=== PATIENT | male | born 1945 | race Caucasian/White ===

== ENCOUNTER 2020-02-12 05:29 | Inpatient (IN) | payer OTHER, BC, SELFPAY ==
[~2020-02-12] VITALS: Ht 172.7 cm; Wt 69.5 kg
[2020-02-12 05:34] VITALS: BP_SYST 104
--- NOTE | 2020-02-12 05:35 | NUR ---
Placed in room 8. Placed on monitor worker, blood pressure machine and pulse oximeter. To gown for exam. Side rails up. Report given to Felix BRITTON
--- NOTE | 2020-02-12 05:36 | NUR ---
Assumed care of patient, Introduced self to patient, positioned for comfort. Bed to low position sr up. patient bilateral lower leg amputee. Awake/alert but oriented to name. Patient resting quietly. No acute distress noted. Vital signs within normal range. Continue to monitor level of comfort.
--- NOTE | 2020-02-12 05:36 | NUR ---
Pt BIB[facility] from [facility] for [facility]. Staff finds pt unresponsive from normal baseline of A&Ox2. Glucose was 23 staff gives 1mg Glucagon IM and activates EMS. IV and D10 started [facility]. Glucose enroute 181 after treatment. Pt placed in bus monitor and will continue assess for change of condition
[2020-02-12] MEDS ORDERED: MEGE20TA6 PO (05:50)
[2020-02-12] MEDS ORDERED: VITD2000 PO (05:50)
[2020-02-12] MEDS ORDERED: ACET-2634 PO (05:50)
[2020-02-12] MEDS ORDERED: COR3.125 PO (05:50)
[2020-02-12] MEDS ORDERED: BISA10SU61 RC (05:50)
[2020-02-12] MEDS ORDERED: POLY119P2 PO (05:50)
[2020-02-12] MEDS ORDERED: ASPI-1155 PO (05:50)
[2020-02-12] MEDS ORDERED: ASCO500T20 PO (05:50)
[2020-02-12] MEDS ORDERED: LACT10SO6 PO (05:50)
[2020-02-12] MEDS ORDERED: DOCU-144 PO (05:50)
[2020-02-12] MEDS ORDERED: MOM PO (05:50)
[2020-02-12] MEDS ORDERED: LOSA25TA3 PO (05:50)
[2020-02-12] MEDS ORDERED: FER300L PO (05:50)
[2020-02-12] MEDS ORDERED: MIDO5TAB4 PO (05:50)
[2020-02-12] MEDS ORDERED: TRI48 PO (05:50)
[2020-02-12] MEDS ORDERED: ATOR40TA68 PO (05:50)
[2020-02-12] MEDS ORDERED: ACET160S2 PO (05:50)
--- NOTE | 2020-02-12 06:10 | NUR ---
CLOSING NOTE PATIENT REFUSED HYGIENE CARE FOR HIS BACKSIDE AND REFUSED PHYSICAL ASSESSMENT FOR HIS BACK SIDE; HE STATED HE "ONLY WANT TO SLEEP" NO SHORTNESS OF BREATH NOTED. AT THIS TIME, PATIENT IS RESTING IN BED, STABLE, NO SIGNS OF RESPIRATORY DISTRESS. CALL LIGHT IS WITHIN REACH. BED IS LOCKED, ALARMED, AND AT THE LOWEST LEVEL. FALL, ASPIRATION, ISOLATION, SAFETY, AND RESPIRATORY PRECAUTIONS HAVE BEEN TAKEN THROUGHOUT THE SHIFT. WILL CONTINUE TO MONITOR UNTIL SHIFT REPORT IS GIVEN AT BEDSIDE TO AM NURSE. Addendum: 02/13/20 at 0917 by Ashley Arguelles RN NOTE INTENDED FOR DIFFERENT TIME
--- NOTE | 2020-02-12 06:33 | NUR ---
# 16 FR Zeng catheter with use of sterile technique. Immediate return of 0 cc urine noted. Bedside drainage bag placed below level of bladder. Pt tolerated procedure well. Patient arrived with zeng in place, changed due to standard of practice prior to admission. Patient unable to toilet self.
[2020-02-12] MEDS ORDERED: VANCOMYCIN HCL 1,000 MG in NS 250 ML IV ONE (06:45)
[2020-02-12] MEDS ORDERED: MEROPENEM 1 GM in NS 100 ML IV ONE (06:45)
[2020-02-12] MEDS ORDERED: cefTRIAXone 1 GM IVPB PREMIX 50 ML IV ONE (06:45)
[2020-02-12] MEDS ORDERED: VANCOMYCIN HCL 1000 MG/VIAL IV ONE (06:55)
--- NOTE | 2020-02-12 07:07 | NUR ---
Patient medicated as ordered. will observe for any adverse reaction. Iv site to right forearm patent and intact. Bed to low position sr up, continue to monitor level of comfort. Patient resting quietly. No acute distress noted. Vital signs within normal range.
[2020-02-12] MEDS ORDERED: MAGNESIUM SULFATE 50 ML IV ONE (07:15)
[2020-02-12] MEDS ORDERED: methylPREDNISolone SOD SUCC 500 MG/VIAL (Solu-MEDROL) IV ONE (07:15)
[2020-02-12 07:24] LABS: BASOPHILS % (AUTO) 0.5 % (0.0-2.0); EOSINOPHILS # (AUTO) 0.1 K/uL (0.0-0.4); EOSINOPHILS % (AUTO) 0.8 % (0.0-4.0); HEMATOCRIT 32.1 % (36-54); HEMOGLOBIN 10.1 g/dL (14.0-18.0); LYMPHOCYTES # (AUTO) 0.5 K/uL (1.0-5.5); LYMPHOCYTES % (AUTO) 5.7 % (20.5-51.5); MEAN CORPUSCULAR HEMOGLOBIN 28 pg (27-31); MEAN CORPUSCULAR HGB CONC 32 % (32-36); MEAN CORPUSCULAR VOLUME 88 fL (79.0-98.0); MONOCYTES # (AUTO) 0.7 K/uL (0.0-1.0); MONOCYTES % (AUTO) 8.5 % (1.7-9.3); NEUTROPHILS % (AUTO) 84.5 % (40.0-70.0); PLATELET COUNT (AUTO) 220 K/uL (130-430); RED BLOOD CELL COUNT(AUTO) 3.64 MIL/uL (4.2-6.2); RED CELL DISTRIBUTION WIDTH 20.3 % (9.0-15.0); WHITE BLOOD COUNT (AUTO) 8.3 K/uL (4.8-10.8)
--- NOTE | 2020-02-12 07:30 | NUR ---
reportb received from Yash BRITTON.
--- NOTE | 2020-02-12 07:39 | NUR ---
Dr. Scott at the bedside
[2020-02-12] MEDS ORDERED: MUPIROCIN 2% TOPICAL OINTMENT 22 GM NS PRN (07:45)
[2020-02-12] MEDS ORDERED: DOCUSATE SODIUM 100 MG CAPSULE PO PRN (07:45)
[2020-02-12] MEDS ORDERED: PIPERACILLIN/TAZO 3.375 GM in NS 50 ML IV ONE (07:45)
[2020-02-12] MEDS ORDERED: ONDANSETRON HCL 4 MG/2 ML VIAL IVP PRN (07:45)
[2020-02-12] MEDS ORDERED: MAGNESIUM SULFATE 50 ML IV PRN (07:45)
[2020-02-12] MEDS ORDERED: POTASSIUM CHLORIDE 20 MEQ TAB.PRT.SR PO PRN (07:45)
[2020-02-12] MEDS ORDERED: MORPHINE 2 MG/ML INJ. SYRINGE IVP PRN (07:45)
[2020-02-12] MEDS ORDERED: ACETAMINOPHEN 325 MG TABLET PO PRN (07:45)
[2020-02-12 08:28] LABS: ANION GAP 8 (5-15); CALCIUM 8.1 mg/dL (8.4-11.0); CHLORIDE 105 mmol/L (98-107); CREATININE 1.28 mg/dL (0.55-1.30); GLUCOSE 59 mg/dL (70-99); POTASSIUM 5.3 mmol/L (3.5-5.1); SODIUM SERUM 141 mmol/L (136-145); UREA NITROGEN, BLOOD 36 mg/dL (8-21)
--- NOTE | 2020-02-12 08:30 | NUR ---
Current BS 24. One amp of D50 given. Will reassess
[2020-02-12 08:33] LABS: ALANINE AMINOTRANSFERASE 14 U/L (12-78); ASPARTATE AMINOTRANSFERASE 18 U/L (10-37); TOTAL BILIRUBIN 0.5 mg/dL (0.0-1.0)
--- NOTE | 2020-02-12 08:45 | NUR ---
current BS is 149
[2020-02-12] MEDS ORDERED: ASCORBIC ACID 500 MG TABLET PO ONE (09:00)
[2020-02-12] MEDS ORDERED: FUROSEMIDE 20 MG/2 ML VIAL IVP ONE (09:00)
[2020-02-12] MEDS ORDERED: CARVEDILOL 3.125 MG TABLET (COREG) PO ONE (09:00)
[2020-02-12] MEDS ORDERED: LOSARTAN POTASSIUM 25 MG TABLET PO ONE (09:00)
[2020-02-12] MEDS ORDERED: DEXTROSE 50% JECT 50 ML DISP.SYRIN IVP PRN (09:00)
[2020-02-12] MEDS ORDERED: ASPIRIN 81 MG TAB.CHEW PO ONE (09:00)
[2020-02-12] MEDS ORDERED: SODIUM POLYSTYRENE SULFONATE 15 GM/60 ML UDBTL PO ONE (09:00)
[2020-02-12] MEDS: D5NS 1,000 ML IV SCH (09:26)
[2020-02-12] MEDS ORDERED: FUROSEMIDE 20 MG/2 ML VIAL ONE (11:15)
[2020-02-12] MEDS: HEPARIN SODIUM,PORCINE 5,000 UNITS/ML VIAL SUBCUT SCH ×2 (11:17→21:00)
[2020-02-12] MEDS: INSULIN LISPRO SLIDING SCALE 100 UNITS/ML VIAL (humaLOG) SUBCUT PRN (11:23)
[2020-02-12] MEDS ORDERED: INSULIN Lispro 100 UNITS/ML VIAL (humaLOG) ONE (11:24)
[2020-02-12 11:59] VITALS: BP_SYST 127
[2020-02-12] MEDS ORDERED: D10W 1,000 ML IV SCH (13:00)
--- NOTE | 2020-02-12 13:00 | NUR ---
Dr. Reynolds at the bedside.
[2020-02-12] MEDS ORDERED: MIDODRINE HCL 5 MG TABLET (PROAMATINE) PO ONE (15:00)
--- NOTE | 2020-02-12 15:05 | NUR ---
BiPAP removed. O2 is at 2l via NC. Current o2 sat is 100%.
--- NOTE | 2020-02-12 16:14 | NUR ---
Pt's , Nina, called in regards to pt status. stated she will be leaving the house tonight and wont be returning until morning and if anything were to happen to call her cell. #: [phone]
--- NOTE | 2020-02-12 16:20 | NUR ---
Pt able to tolerate PO intake. Kayekelate given at this time
[2020-02-12] MEDS ORDERED: SODIUM POLYSTYRENE SULFONATE 15 GM/60 ML UDBTL ONE (16:30)
--- NOTE | 2020-02-12 18:29 | NUR ---
UA and MRSA sent
--- NOTE | 2020-02-12 18:37 | NUR ---
Medication reconciliation completed with information provided by pt. Any prior medication reconciliation on file was reviewed and corrected.
--- NOTE | 2020-02-12 18:41 | NUR ---
Patient will be admitted to care of Dr. Scott. Admitted to tele unit. Will go to room 128-a. Belongings list completed. Complete and up to date summary report printed. SBAR report to be given at bedside with opportunity for questions. IV site 20g right hand patent and infusing well. Bedside report to be given
[2020-02-12 19:02] VITALS: BP_SYST 122
--- NOTE | 2020-02-12 19:02 | NUR ---
ADMISSION NOTE Received patient from ER via toni, received report from Vilma BRITTON. Patient admitted with diagnosis of PNA. Patient placed on O2 2L via NC, patient placed on telemetry as ordered. Patient oriented to hospital routine, call light, toileting and safety-patient confused. Side rails up x3, bed alarm on, call light within reach.
[2020-02-12] MEDS: ASCORBIC ACID 500 MG TABLET PO SCH (21:00)
[2020-02-12] MEDS ORDERED: CARVEDILOL 3.125 MG TABLET (COREG) PO SCH (21:00)
[2020-02-12] MEDS: MIDODRINE HCL 5 MG TABLET (PROAMATINE) PO SCH (21:00)
[2020-02-12] MEDS: ATORVASTATIN 20 MG TABLET PO SCH (21:00)
[2020-02-12] MEDS: DOXYCYCLINE HYCLATE 100 MG in D5W 100 ML IV SCH (21:00)
[2020-02-12] MEDS: SODIUM BICARBONATE 650 MG TABLET PO SCH (21:00)
[2020-02-13] VITALS: BP_SYST 107
[2020-02-13] MEDS: D5NS 1,000 ML IV SCH (05:00)
--- NOTE | 2020-02-13 06:10 | NUR ---
CLOSING NOTE PATIENT REFUSED HYGIENE CARE FOR HIS BACKSIDE AND REFUSED PHYSICAL ASSESSMENT FOR HIS BACK SIDE; HE STATED HE "ONLY WANT TO SLEEP" NO SHORTNESS OF BREATH NOTED. AT THIS TIME, PATIENT IS RESTING IN BED, STABLE, NO SIGNS OF RESPIRATORY DISTRESS. CALL LIGHT IS WITHIN REACH. BED IS LOCKED, ALARMED, AND AT THE LOWEST LEVEL. FALL, ASPIRATION, ISOLATION, SAFETY, AND RESPIRATORY PRECAUTIONS HAVE BEEN TAKEN THROUGHOUT THE SHIFT. WILL CONTINUE TO MONITOR UNTIL SHIFT REPORT IS GIVEN AT BEDSIDE TO AM NURSE.
[2020-02-13 06:49] LABS: BASOPHILS % (AUTO) 0.2 % (0.0-2.0); EOSINOPHILS % (AUTO) 0.1 % (0.0-4.0); HEMATOCRIT 28.6 % (36-54); HEMOGLOBIN 9.3 g/dL (14.0-18.0); LYMPHOCYTES # (AUTO) 0.6 K/uL (1.0-5.5); MEAN CORPUSCULAR HEMOGLOBIN 28 pg (27-31); MEAN CORPUSCULAR HGB CONC 32 % (32-36); MEAN CORPUSCULAR VOLUME 87 fL (79.0-98.0); MONOCYTES # (AUTO) 0.6 K/uL (0.0-1.0); MONOCYTES % (AUTO) 12.5 % (1.7-9.3); NEUTROPHILS # (AUTO) 3.3 K/uL (1.8-7.7); NEUTROPHILS % (AUTO) 74.2 % (40.0-70.0); PLATELET COUNT (AUTO) 203 K/uL (130-430); RED CELL DISTRIBUTION WIDTH 20.1 % (9.0-15.0); WHITE BLOOD COUNT (AUTO) 4.4 K/uL (4.8-10.8)
[2020-02-13 07:29] LABS: ALANINE AMINOTRANSFERASE 13 U/L (12-78); ALBUMIN 2.6 g/dL (3.4-4.8); ANION GAP 5 (5-15); ASPARTATE AMINOTRANSFERASE 13 U/L (10-37); CALCIUM 7.8 mg/dL (8.4-11.0); CHLORIDE 105 mmol/L (98-107); CREATININE 1.11 mg/dL (0.55-1.30); GLUCOSE 139 mg/dL (70-99); POTASSIUM 4.5 mmol/L (3.5-5.1); SODIUM SERUM 141 mmol/L (136-145); THYROID STIMULATING HORMONE 4.31 uIu/mL (0.36-3.74); TOTAL BILIRUBIN 0.4 mg/dL (0.0-1.0); UREA NITROGEN, BLOOD 30 mg/dL (8-21)
[2020-02-13 07:56] LABS: CHOLESTEROL 86 mg/dL (<200); HDL CHOLESTEROL 39 mg/dL (>45); LDL CHOLESTEROL 42 mg/dL (<100); TRIGLYCERIDES 38 mg/dL (30-150)
[2020-02-13] MEDS ORDERED: FUROSEMIDE 20 MG/2 ML VIAL IVP SCH (09:00)
[2020-02-13] MEDS: HEPARIN SODIUM,PORCINE 5,000 UNITS/ML VIAL SUBCUT SCH ×2 (09:36→21:00)
[2020-02-13] MEDS: DOXYCYCLINE HYCLATE 100 MG in D5W 100 ML IV SCH ×2 (09:36→21:00)
[2020-02-13] MEDS: SODIUM BICARBONATE 650 MG TABLET PO SCH ×3 (09:36→21:00)
[2020-02-13] MEDS: ASCORBIC ACID 500 MG TABLET PO SCH ×2 (09:36→21:00)
[2020-02-13] MEDS: LOSARTAN POTASSIUM 25 MG TABLET PO SCH (09:36)
[2020-02-13] MEDS: MIDODRINE HCL 5 MG TABLET (PROAMATINE) PO SCH ×3 (09:36→21:00)
[2020-02-13] MEDS: ASPIRIN 81 MG TAB.CHEW PO SCH (09:36)
--- NOTE | 2020-02-13 09:36 | NUR ---
OPENING NOTES/ ROUTINE MEDS PT AWAKE, ALERT, AND ORIENTED X3. ASKS REPETITIVE QUESTIONS. IV LINE INTACT AND PATENT, NO SIGNS OF INFILTRATION NOTED, FLUIDS RUNNING ORDERED. NONLABORED BREATHING NOTED, RECEIVING O2 AT 3LPM VIA NASAL CANNULA, TOLERATING WELL. ROUTINE MEDS ADMINISTERED ORDERED PER MD, EDUCATION GIVEN, TOLERATED WELL. NO ACUTE DISTRESS NOTED. ALL NEEDS MET. CALL LIGHT IN REACH. CALLED PT'S ON PHONE, PT SPEAKING TO AT THIS TIME. FALL, ASPIRATION, AND ISOLATION PRECAUTIONS IN PLACE. CONTINUE TO MONITOR.
--- NOTE | 2020-02-13 10:21 | NUR ---
Nutrition Update Abe Scale 14 noted. Pt admitted for PNA Diet: cardiac, finely chopped and Glucerna Shakes TID BMI: 24.4 kg/m2 RD to follow per nutrition care standards.
[2020-02-13 12:18] VITALS: BP_SYST 101
[2020-02-13 16:15] VITALS: BP_SYST 98
[2020-02-13] MEDS: INSULIN LISPRO SLIDING SCALE 100 UNITS/ML VIAL (humaLOG) SUBCUT PRN ×2 (17:11→21:00)
--- NOTE | 2020-02-13 19:20 | NUR ---
CLOSING NOTES PT AWAKE AND ALERT. IV LINE INTACT AND PATENT, NO SIGNS OF INFILTRATION NOTED, FLUIDS RUNNING ORDERED, TOLERATING WELL. NONLABORED BREATHING NOTED, RECEIVING O2 AT 3LPM VIA NASAL CANNULA, TOLERATING WELL. NO ACUTE DISTRESS NOTED. PT DENIES SOB AT THIS TIME. ALL NEEDS MET. CALL LIGHT IN REACH. FALL, ASPIRATION, AND ISOLATION PRECAUTIONS IN PLACE. ENDORSED CARE TO TOBI GORE.
[2020-02-13 19:55] VITALS: BP_SYST 94
[2020-02-13] MEDS: ATORVASTATIN 20 MG TABLET PO SCH (21:00)
[2020-02-13] MEDS: CARVEDILOL 6.25 MG TABLET (COREG) PO SCH (21:00)
[2020-02-13] MEDS: FUROSEMIDE 20 MG/2 ML VIAL IVP SCH (21:00)
--- NOTE | 2020-02-13 22:30 | NUR ---
HYGIENE CARE NOTE HYGIENE CARE IS PROVIDED AT THIS TIME, FRESH LINENS PROVIDED, AND PATIENT IS REPOSITIONED FOR COMFORT. PATIENT TOLERATED WELL. CALL LIGHT PLACED WITHIN REACH. BED IS LOCKED, ALARMED, AND AT THE LOWEST LEVEL.
[2020-02-14] VITALS: BP_SYST 114
[2020-02-14] MEDS: LORazepam 2 MG/ML VIAL IVP PRN (00:30)
[2020-02-14] MEDS: INSULIN LISPRO SLIDING SCALE 100 UNITS/ML VIAL (humaLOG) SUBCUT PRN ×2 (02:25→12:44)
--- NOTE | 2020-02-14 06:40 | NUR ---
CLOSING NOTE PATIENT WAS UNCOOPERATIVE DURING THE SHIFT, CONTINUOUSLY TAKING OFF HIS OXYGEN SENSOR DESPITE SAFETY EDUCATION EFFORTS. NO EPISODES OF SHORTNESS OF BREATH NOTED. AT THIS TIME, PATIENT IS RESTING IN BED, STABLE, NO SIGNS OF RESPIRATORY DISTRESS. CALL LIGHT IS WITHIN REACH. BED IS LOCKED, ALARMED, AND AT THE LOWEST LEVEL. FALL, ASPIRATION, ISOLATION, SAFETY, AND RESPIRATORY PRECAUTIONS HAVE BEEN TAKEN THROUGHOUT THE SHIFT. WILL CONTINUE TO MONITOR UNTIL SHIFT REPORT IS GIVEN AT BEDSIDE TO AM NURSE.
[2020-02-14 07:37] LABS: BASOPHILS % (AUTO) 0.7 % (0.0-2.0); EOSINOPHILS # (AUTO) 0.1 K/uL (0.0-0.4); EOSINOPHILS % (AUTO) 0.8 % (0.0-4.0); HEMATOCRIT 29.4 % (36-54); HEMOGLOBIN 9.5 g/dL (14.0-18.0); LYMPHOCYTES # (AUTO) 0.7 K/uL (1.0-5.5); LYMPHOCYTES % (AUTO) 11.1 % (20.5-51.5); MEAN CORPUSCULAR HEMOGLOBIN 28 pg (27-31); MEAN CORPUSCULAR HGB CONC 32 % (32-36); MEAN CORPUSCULAR VOLUME 86 fL (79.0-98.0); MONOCYTES # (AUTO) 0.6 K/uL (0.0-1.0); MONOCYTES % (AUTO) 9.7 % (1.7-9.3); NEUTROPHILS # (AUTO) 4.8 K/uL (1.8-7.7); NEUTROPHILS % (AUTO) 77.7 % (40.0-70.0); PLATELET COUNT (AUTO) 209 K/uL (130-430); RED CELL DISTRIBUTION WIDTH 19.8 % (9.0-15.0); WHITE BLOOD COUNT (AUTO) 6.2 K/uL (4.8-10.8)
[2020-02-14 07:55] VITALS: BP_SYST 124
--- NOTE | 2020-02-14 07:55 | NUR ---
INITIAL ROUNDS Received pt AAOx2, forgetful at times, no s/s resp distress, no c/o pain or discomfort. Pt on airborne and droplet isolation precautions for Covid 19+. Plan of care for the day reviewed with pt-pt verbalized his understanding. Pt repositioned with pillow support and right stump off-loaded for skin care. Aparicio draining to gravity with yellow urine. Pain management, disease process, skin and safety discussed-pt just stated "okay"-will reinforce all teachings. Side rails up x3, bed alarm on for safety. Call light within reach.
[2020-02-14 08:16] LABS: ALANINE AMINOTRANSFERASE 11 U/L (12-78); ALBUMIN 2.8 g/dL (3.4-4.8); ANION GAP 5 (5-15); ASPARTATE AMINOTRANSFERASE 16 U/L (10-37); CALCIUM 7.6 mg/dL (8.4-11.0); CHLORIDE 101 mmol/L (98-107); CREATININE 1.12 mg/dL (0.55-1.30); GLUCOSE 151 mg/dL (70-99); POTASSIUM 3.9 mmol/L (3.5-5.1); SODIUM SERUM 137 mmol/L (136-145); TOTAL BILIRUBIN 0.5 mg/dL (0.0-1.0); UREA NITROGEN, BLOOD 32 mg/dL (8-21)
[2020-02-14] MEDS: FUROSEMIDE 20 MG/2 ML VIAL IVP SCH ×2 (09:47→21:00)
[2020-02-14] MEDS: CARVEDILOL 6.25 MG TABLET (COREG) PO SCH ×2 (09:48→21:00)
[2020-02-14] MEDS: LOSARTAN POTASSIUM 25 MG TABLET PO SCH (09:48)
[2020-02-14] MEDS: ASPIRIN 81 MG TAB.CHEW PO SCH (09:48)
[2020-02-14] MEDS: SODIUM BICARBONATE 650 MG TABLET PO SCH ×3 (09:48→21:00)
[2020-02-14] MEDS: MIDODRINE HCL 5 MG TABLET (PROAMATINE) PO SCH ×3 (09:49→21:00)
[2020-02-14] MEDS: ASCORBIC ACID 500 MG TABLET PO SCH ×2 (09:53→21:00)
[2020-02-14] MEDS: HEPARIN SODIUM,PORCINE 5,000 UNITS/ML VIAL SUBCUT SCH ×2 (09:53→21:00)
[2020-02-14] MEDS: DOXYCYCLINE HYCLATE 100 MG in D5W 100 ML IV SCH ×2 (09:54→21:00)
--- NOTE | 2020-02-14 16:13 | NUR ---
Dietitian Recommendations * Recommend continuing cardiac, finely chopped diet w/ Glucerna TID (ONS provides 660 kcal/day, 30 gm protein/day) * Encourage increase PO intakes LP, RD Please refer to Nutrition Assessment for details. Addendum: 02/14/20 at [address] Amended: Links added.
[2020-02-14 17:15] VITALS: BP_SYST 129
--- NOTE | 2020-02-14 19:35 | NUR ---
CLOSING NOTE Pt resting quietly in bed with no s/s resp distress, no c/o pain or discomfort. Airborne and droplet isolation precautions maintained throughout shift. All precautions remain in place, needs met, call light within reach.
--- NOTE | 2020-02-14 19:49 | NUR ---
Initial note: Received report from jamaal RN. Patient is awake, laying in bed, no acute distress. Tolerating 6L NC, even and unlabored breathing. IV site saline locked. Aparicio draining clearl, yellow urine to gravity. Call light with patient. Safety, fall, COVID iso precautions in place. Will continue with plan of care.
[2020-02-14 20:45] VITALS: BP_SYST 100
[2020-02-14] MEDS: ATORVASTATIN 20 MG TABLET PO SCH (21:00)
[2020-02-15] VITALS: BP_SYST 104
[2020-02-15] MEDS: LORazepam 2 MG/ML VIAL IVP PRN (01:25)
--- NOTE | 2020-02-15 06:39 | NUR ---
Closing note: Patient is resting in bed, no acute distress. Even, unlabored breathing on 6L NC. Aparicio draining yellow urine to gravity. All needs met. Safety, fall, COVID iso precautions observed. Will endorse care to dayshift RN.
[2020-02-15 08:59] LABS: BASOPHILS % (AUTO) 0.3 % (0.0-2.0); EOSINOPHILS # (AUTO) 0.1 K/uL (0.0-0.4); EOSINOPHILS % (AUTO) 0.9 % (0.0-4.0); HEMATOCRIT 31.2 % (36-54); HEMOGLOBIN 10.1 g/dL (14.0-18.0); LYMPHOCYTES # (AUTO) 0.6 K/uL (1.0-5.5); LYMPHOCYTES % (AUTO) 7.3 % (20.5-51.5); MEAN CORPUSCULAR HEMOGLOBIN 28 pg (27-31); MEAN CORPUSCULAR HGB CONC 33 % (32-36); MEAN CORPUSCULAR VOLUME 86 fL (79.0-98.0); MONOCYTES # (AUTO) 1.2 K/uL (0.0-1.0); MONOCYTES % (AUTO) 14.8 % (1.7-9.3); NEUTROPHILS # (AUTO) 6.2 K/uL (1.8-7.7); NEUTROPHILS % (AUTO) 76.7 % (40.0-70.0); PLATELET COUNT (AUTO) 205 K/uL (130-430); RED BLOOD CELL COUNT(AUTO) 3.61 MIL/uL (4.2-6.2); RED CELL DISTRIBUTION WIDTH 19.7 % (9.0-15.0); WHITE BLOOD COUNT (AUTO) 8.1 K/uL (4.8-10.8)
[2020-02-15 09:18] VITALS: BP_SYST 128
--- NOTE | 2020-02-15 09:18 | NUR ---
INITIAL ROUNDS Received pt AAOx2, no s/s resp distress, no c/o pain or discomfort. Pt on airborne and droplet isolation precautions for Covid 19+. Plan of care for the day reviewed with pt-pt verbalized stated okay. HOB elevated for aspiration precautions. Pt repositioned with pillow support and right stump off-loaded for skin care. Aparicio draining to gravity with yellow urine. Pain management, disease process, skin and safety discussed-pt just stated "okay"-will reinforce all teachings. Side rails up x3, bed alarm on for safety. Call light within reach.
[2020-02-15] MEDS: MIDODRINE HCL 5 MG TABLET (PROAMATINE) PO SCH ×3 (09:30→21:36)
[2020-02-15] MEDS: DOXYCYCLINE HYCLATE 100 MG in D5W 100 ML IV SCH ×2 (09:30→21:34)
[2020-02-15] MEDS: SODIUM BICARBONATE 650 MG TABLET PO SCH (09:30)
[2020-02-15] MEDS: ASCORBIC ACID 500 MG TABLET PO SCH ×2 (09:30→21:36)
[2020-02-15] MEDS: ASPIRIN 81 MG TAB.CHEW PO SCH (09:30)
[2020-02-15] MEDS: FUROSEMIDE 20 MG/2 ML VIAL IVP SCH ×2 (09:31→21:35)
[2020-02-15] MEDS: CARVEDILOL 6.25 MG TABLET (COREG) PO SCH ×2 (09:31→21:36)
[2020-02-15] MEDS: LOSARTAN POTASSIUM 25 MG TABLET PO SCH (09:32)
[2020-02-15] MEDS: HEPARIN SODIUM,PORCINE 5,000 UNITS/ML VIAL SUBCUT SCH ×2 (09:32→21:40)
[2020-02-15 09:38] LABS: ANION GAP 10 (5-15); CHLORIDE 100 mmol/L (98-107); CREATININE 0.85 mg/dL (0.55-1.30); GLUCOSE 69 mg/dL (70-99); POTASSIUM 3.9 mmol/L (3.5-5.1); SODIUM SERUM 138 mmol/L (136-145); UREA NITROGEN, BLOOD 29 mg/dL (8-21)
[2020-02-15 10:47] VITALS: BP_SYST 104
[2020-02-15] MEDS: INSULIN LISPRO SLIDING SCALE 100 UNITS/ML VIAL (humaLOG) SUBCUT PRN ×2 (18:12→21:40)
[2020-02-15 19:00] VITALS: BP_SYST 128
--- NOTE | 2020-02-15 19:24 | NUR ---
CLOSING NOTE Pt sitting up in bed eating his dinner with no s/s resp distress, no c/o pain or discomfort. Covid 19 -, airborne and droplet isolation D/C'd. Telemetry discontinued. Needs met, call light within reach.
[2020-02-15 20:00] VITALS: BP_SYST 126; BP_SYST 135
--- NOTE | 2020-02-15 20:00 | NUR ---
Initial note: Received report from jamaal RN. Patient is awake, laying in bed, no acute distress. Tolerating 2L NC, even and unlabored breathing. IV site saline locked. Aparicio draining clear, yellow urine to gravity. Call light with patient. Safety, fall, COVID iso precautions in place. Will continue with plan of care.
--- NOTE | 2020-02-15 20:25 | NUR ---
D/C COVID isolation: Per MD order, D/C COVID isolation precautions. Care endorsed to TOBI Bowens.
[2020-02-15] MEDS: ATORVASTATIN 20 MG TABLET PO SCH (21:36)
[2020-02-16] VITALS: BP_SYST 130
[2020-02-16] MEDS: MORPHINE 2 MG/ML INJ. SYRINGE IVP PRN (02:27)
[2020-02-16] MEDS: INSULIN LISPRO SLIDING SCALE 100 UNITS/ML VIAL (humaLOG) SUBCUT PRN (05:32)
[2020-02-16 06:40] LABS: BASOPHILS % (AUTO) 0.4 % (0.0-2.0); EOSINOPHILS # (AUTO) 0.1 K/uL (0.0-0.4); EOSINOPHILS % (AUTO) 1.4 % (0.0-4.0); HEMATOCRIT 28.6 % (36-54); HEMOGLOBIN 9.3 g/dL (14.0-18.0); LYMPHOCYTES # (AUTO) 0.5 K/uL (1.0-5.5); LYMPHOCYTES % (AUTO) 10.3 % (20.5-51.5); MEAN CORPUSCULAR HEMOGLOBIN 28 pg (27-31); MEAN CORPUSCULAR HGB CONC 33 % (32-36); MEAN CORPUSCULAR VOLUME 85 fL (79.0-98.0); MONOCYTES # (AUTO) 0.6 K/uL (0.0-1.0); NEUTROPHILS # (AUTO) 3.9 K/uL (1.8-7.7); NEUTROPHILS % (AUTO) 75.9 % (40.0-70.0); PLATELET COUNT (AUTO) 172 K/uL (130-430); RED BLOOD CELL COUNT(AUTO) 3.37 MIL/uL (4.2-6.2); RED CELL DISTRIBUTION WIDTH 19.5 % (9.0-15.0); WHITE BLOOD COUNT (AUTO) 5.2 K/uL (4.8-10.8)
[2020-02-16 06:48] LABS: ANION GAP 5 (5-15); CALCIUM 7.7 mg/dL (8.4-11.0); CHLORIDE 102 mmol/L (98-107); CREATININE 0.85 mg/dL (0.55-1.30); GLUCOSE 97 mg/dL (70-99); POTASSIUM 3.6 mmol/L (3.5-5.1); SODIUM SERUM 139 mmol/L (136-145); UREA NITROGEN, BLOOD 25 mg/dL (8-21)
[2020-02-16 09:25] VITALS: BP_SYST 107
--- NOTE | 2020-02-16 09:25 | NUR ---
INITIAL ROUNDS Received pt AAOx3, no s/s resp distress, no c/o pain or discomfort. Plan of care for the day reviewed with pt-pt verbalized his understanding. HOB elevated for aspiration precautions. Pt repositioned with pillow support and right stump off-loaded for skin care. Aparicio draining to gravity with yellow urine. Pain management, disease process, skin and safety discussed-pt stated "okay"-will reinforce all teachings. Side rails up x3, bed alarm on for safety. Call light within reach.
[2020-02-16] MEDS: DOXYCYCLINE HYCLATE 100 MG in D5W 100 ML IV SCH ×2 (09:48→21:50)
[2020-02-16] MEDS: FUROSEMIDE 20 MG/2 ML VIAL IVP SCH ×2 (09:48→21:51)
[2020-02-16] MEDS: ASCORBIC ACID 500 MG TABLET PO SCH ×2 (09:49→21:54)
[2020-02-16] MEDS: ASPIRIN 81 MG TAB.CHEW PO SCH (09:49)
[2020-02-16] MEDS: MIDODRINE HCL 5 MG TABLET (PROAMATINE) PO SCH ×3 (09:49→21:52)
[2020-02-16] MEDS: CARVEDILOL 6.25 MG TABLET (COREG) PO SCH ×2 (09:50→21:51)
[2020-02-16] MEDS: LOSARTAN POTASSIUM 25 MG TABLET PO SCH (09:50)
[2020-02-16] MEDS: HEPARIN SODIUM,PORCINE 5,000 UNITS/ML VIAL SUBCUT SCH ×2 (09:58→21:56)
[2020-02-16] MEDS: LORazepam 2 MG/ML VIAL IVP PRN (15:54)
[2020-02-16 19:00] VITALS: BP_SYST 142
--- NOTE | 2020-02-16 19:10 | NUR ---
CLOSING NOTE Pt resting quietly in bed with no s/s resp distress, no c/o pain or discomfort. All precautions remain in place. Call light within reach.
[2020-02-16 20:00] VITALS: BP_SYST 142
[2020-02-16] MEDS ORDERED: TEMAZEPAM 7.5 MG CAPSULE PO ONE (20:15)
[2020-02-16] MEDS: ATORVASTATIN 20 MG TABLET PO SCH (21:52)
[2020-02-17] VITALS: BP_SYST 135
--- NOTE | 2020-02-17 06:30 | NUR ---
pt.presented stable status w/in the shift.pt.was assessed for cleanliness q-2hrs.pt.repositioned q-2hrs.iv access remained intact;patent iv fluids infusing.no c/o pain,nausea.blood glucose assessed ac/hs.pt.presents bilateral bka.sans prothesis. pt.presents bedrest activity.pt.presents zeng cath.call light/telfpon ed plce w/in acces of [facility]/.
[2020-02-17 06:57] LABS: BASOPHILS # (AUTO) 0.1 K/uL (0.0-0.2); EOSINOPHILS # (AUTO) 0.1 K/uL (0.0-0.4); EOSINOPHILS % (AUTO) 1.6 % (0.0-4.0); HEMATOCRIT 30.6 % (36-54); LYMPHOCYTES # (AUTO) 0.7 K/uL (1.0-5.5); LYMPHOCYTES % (AUTO) 11.8 % (20.5-51.5); MEAN CORPUSCULAR HEMOGLOBIN 28 pg (27-31); MEAN CORPUSCULAR HGB CONC 33 % (32-36); MEAN CORPUSCULAR VOLUME 85 fL (79.0-98.0); MONOCYTES # (AUTO) 0.7 K/uL (0.0-1.0); MONOCYTES % (AUTO) 11.6 % (1.7-9.3); NEUTROPHILS # (AUTO) 4.4 K/uL (1.8-7.7); PLATELET COUNT (AUTO) 171 K/uL (130-430); RED BLOOD CELL COUNT(AUTO) 3.58 MIL/uL (4.2-6.2); RED CELL DISTRIBUTION WIDTH 19.4 % (9.0-15.0); WHITE BLOOD COUNT (AUTO) 5.9 K/uL (4.8-10.8)
[2020-02-17 07:39] LABS: ANION GAP 6 (5-15); CHLORIDE 99 mmol/L (98-107); CREATININE 0.79 mg/dL (0.55-1.30); GLUCOSE 119 mg/dL (70-99); POTASSIUM 3.6 mmol/L (3.5-5.1); SODIUM SERUM 138 mmol/L (136-145); UREA NITROGEN, BLOOD 22 mg/dL (8-21)
[2020-02-17 08:00] VITALS: BP_SYST 129
--- NOTE | 2020-02-17 08:00 | NUR ---
awake,alert,sleeping well in bed,on O2 2L/NC,sat 99%,needs attended,call light & personal items within pt reach,safety maintained.
[2020-02-17] MEDS: ASPIRIN 81 MG TAB.CHEW PO SCH (09:44)
[2020-02-17] MEDS: FUROSEMIDE 20 MG/2 ML VIAL IVP SCH ×2 (09:44→21:30)
[2020-02-17] MEDS: MIDODRINE HCL 5 MG TABLET (PROAMATINE) PO SCH ×3 (09:45→21:30)
[2020-02-17] MEDS: LOSARTAN POTASSIUM 25 MG TABLET PO SCH (09:45)
[2020-02-17] MEDS: CARVEDILOL 6.25 MG TABLET (COREG) PO SCH ×2 (09:45→23:06)
[2020-02-17] MEDS: ASCORBIC ACID 500 MG TABLET PO SCH ×2 (09:45→21:30)
[2020-02-17] MEDS: DOXYCYCLINE HYCLATE 100 MG in D5W 100 ML IV SCH ×2 (09:47→21:00)
[2020-02-17] MEDS: HEPARIN SODIUM,PORCINE 5,000 UNITS/ML VIAL SUBCUT SCH ×2 (09:51→21:30)
--- NOTE | 2020-02-17 10:00 | NUR ---
pt c/o severe pain in back,give morphine 2 mg IV as prn order for pain.repositioned for comfort.
[2020-02-17] MEDS: MORPHINE 2 MG/ML INJ. SYRINGE IVP PRN ×2 (10:14→16:57)
--- NOTE | 2020-02-17 12:00 | NUR ---
vss,pt resting well in bed,no c/o pain or discomfort for now.hourly rounds made,safety maintained.
--- NOTE | 2020-02-17 12:06 | NUR ---
Discharge Planning: DCP faxed pt referral to [facility] ([phone] P [phone]) DCP to follow up
[2020-02-17 12:22] VITALS: BP_SYST 133
[2020-02-17] MEDS: INSULIN LISPRO SLIDING SCALE 100 UNITS/ML VIAL (humaLOG) SUBCUT PRN (13:45)
--- NOTE | 2020-02-17 14:00 | NUR ---
pt continue resting in bed,no acute distress noted.
--- NOTE | 2020-02-17 16:00 | NUR ---
vital sign stable,IVF infusing well.IV site in left arm patent and intact.zeng catheter in place drains clear juno urine by gravity.
[2020-02-17 16:39] VITALS: BP_SYST 117
--- NOTE | 2020-02-17 18:00 | NUR ---
pt c/o pain again,give another morphine 2 mg IV and pain with relief after meds given moved pt to room 106B by bed,continue O2 2L/NC,continue to monitor pt.
[2020-02-17 20:00] VITALS: BP_SYST 119
[2020-02-17] MEDS: ATORVASTATIN 20 MG TABLET PO SCH (21:30)
[2020-02-18] VITALS: BP_SYST 107
[2020-02-18 05:00] VITALS: BP_SYST 112
[2020-02-18] MEDS: MORPHINE 2 MG/ML INJ. SYRINGE IVP PRN ×2 (06:30→23:39)
--- NOTE | 2020-02-18 08:36 | NUR ---
Case mgt: I called [facility] to f/u for bed availability--Alexander Phillips, is in a meeting -I was asked to call back in 30 min--ROBBY BRITTON
[2020-02-18 10:00] VITALS: BP_SYST 108
[2020-02-18] MEDS: ASPIRIN 81 MG TAB.CHEW PO SCH (11:09)
[2020-02-18] MEDS: DOXYCYCLINE HYCLATE 100 MG in D5W 100 ML IV SCH ×2 (11:09→20:18)
[2020-02-18] MEDS: FUROSEMIDE 20 MG/2 ML VIAL IVP SCH ×2 (11:09→20:27)
[2020-02-18] MEDS: CARVEDILOL 6.25 MG TABLET (COREG) PO SCH ×2 (11:11→20:28)
[2020-02-18] MEDS: MIDODRINE HCL 5 MG TABLET (PROAMATINE) PO SCH ×3 (11:12→20:27)
[2020-02-18] MEDS: ASCORBIC ACID 500 MG TABLET PO SCH ×2 (11:12→20:26)
[2020-02-18] MEDS: HEPARIN SODIUM,PORCINE 5,000 UNITS/ML VIAL SUBCUT SCH ×2 (11:14→20:41)
--- NOTE | 2020-02-18 13:30 | NUR ---
Discharge Planning: JEZ arranged transportation with [facility] ([phone])BLS Will call to [facility] ([phone] P [phone]) [facility]. Patient packet taken to nurse station. STEPHANIEP made CM and nurse aware. Addendum: 02/18/20 at 1358 by Kaila Arias DP JEZ spoke to [facility] ([phone] P [phone]) patient can be recieved after 4:00pm
[2020-02-18] MEDS: LOSARTAN POTASSIUM 25 MG TABLET PO SCH (13:50)
[2020-02-18 15:00] VITALS: BP_SYST 96
--- NOTE | 2020-02-18 18:00 | NUR ---
NOTES PATIENT STABLE, NOT IN DISTRESS
--- NOTE | 2020-02-18 19:39 | NUR ---
Initial note: Received report from jamaal RN. Patient is awake, laying in bed, no acute distress. Tolerating 3L NC, even and unlabored breathing. IV site saline locked. Aparicio draining clear, yellow urine to gravity. Call light with patient. Safety, fall precautions in place. Will continue with plan of care.
[2020-02-18 19:59] VITALS: BP_SYST 108
--- NOTE | 2020-02-18 20:00 | NUR ---
Spoke w/ : Spoke with patient's Nina regarding discharge back to [facility]. She is agreeable to transfer.
--- NOTE | 2020-02-18 20:12 | NUR ---
Report called: Called report to TOBI Otto at [facility].
[2020-02-18] MEDS: ATORVASTATIN 20 MG TABLET PO SCH (20:26)
[2020-02-18] MEDS: INSULIN LISPRO SLIDING SCALE 100 UNITS/ML VIAL (humaLOG) SUBCUT PRN (20:44)
--- NOTE | 2020-02-18 20:49 | NUR ---
Called [facility], s/w Tan. ETA [phone]
--- NOTE | 2020-02-19 01:35 | NUR ---
PT TRANSFERRED: Report given to TOBI TAN at [facility]. Transfer packet with Transfer Orders and Medication Reconciliation form given to EMT with report. Exitcare provided. [facility] ID band removed, replaced with ID band with pt's name and . IV catheter in place, saline locked. Aparicio catheter draining yellow urine to gravity. All belongings sent with patient. Patient left floor via gurney escorted by EMT in no distress.
[2020-02-19 02:23] VITALS: BP_SYST 109
== END 2020-02-19 01:35 | DRG 177 ==
LOC: SED 05:29 → STU 07:37 → SMU 02-15 22:29
PROVIDERS: ADMIT General Practice; ATTEND General Practice
DX: J69.0 Pneumonitis due to inhalation of food and vomit (principal); J96.02 Acute respiratory failure with hypercapnia; J96.01 Acute respiratory failure with hypoxia; I50.43 Acute on chronic combined systolic (congestive) and diastolic (congestive) heart failure; E87.2 Acidosis; E44.0 Moderate protein-calorie malnutrition; I42.0 Dilated cardiomyopathy; N39.0 Urinary tract infection, site not specified; D63.8 Anemia in other chronic diseases classified elsewhere; I11.0 Hypertensive heart disease with heart failure; E11.51 Type 2 diabetes mellitus with diabetic peripheral angiopathy without gangrene; E11.649 Type 2 diabetes mellitus with hypoglycemia without coma; E78.5 Hyperlipidemia, unspecified; E83.51 Hypocalcemia; E87.5 Hyperkalemia; F03.90 Unspecified dementia, unspecified severity, without behavioral disturbance, psychotic disturbance, mood disturbance, and anxiety; K21.9 Gastro-esophageal reflux disease without esophagitis; Z20.828 Contact with and (suspected) exposure to other viral communicable diseases; I25.10 Atherosclerotic heart disease of native coronary artery without angina pectoris; M32.9 Systemic lupus erythematosus, unspecified; Z89.511 Acquired absence of right leg below knee; Z89.611 Acquired absence of right leg above knee; Z89.612 Acquired absence of left leg above knee; Z95.810 Presence of automatic (implantable) cardiac defibrillator; Z99.3 Dependence on wheelchair; Z88.1 Allergy status to other antibiotic agents; Z88.8 Allergy status to other drugs, medicaments and biological substances; Z68.23 Body mass index [BMI] 23.0-23.9, adult
CPT/HCPCS: 36415; 36600; 71045; 80048; 80053; 80061; 82803-TC; 82962; 83036; 83605; 83735-TC; 83880; 84443-TC; 85025; 87040-TC; 87081; 93005; 93306; 94660; 94760; 96365; 96366; 96368; 96375; 97110-GP; 97530-GP; 99291; G0378; J1644; J1940; J2060; J2185; J2270; J2543; J3370; J3475; J3490; J7060; U0003